=== PATIENT | female | born 1965 | race Hispanic/Latino ===

== ENCOUNTER 2017-11-03 19:11 | Emergency (ER) | payer OTHER ==
--- NOTE | 2017-11-03 20:18 | RAD REPORT ---
EXAM DESCRIPTION: CT - C Spine Wo Con - 11/03/2017 8:00 pm CLINICAL HISTORY: PAIN Radiculopathy COMPARISON: None FINDINGS: The cervical vertebral body heights and disc spaces are maintained. Small endplate osteoph yte is noted at C5-6 and C6-7 compatible with minimal spondylosis. No evidence of acute cervical spine fracture or subluxation. Prevertebral soft tissues are normal in thickness. Soft tissue density is seen left aspect of the vallecula, nonspecific. IMPRESSION: Negative for acute cervical spine abnormality. Minimal lower cervical spondylosis. Soft tissue density is noted in the left aspect of the vallecula, nonspecific. Direct visualization w ould be suggested on non-emergent basis. All CT scans are performed using dose optimization technique as appropriate and may include automated exposure control or mA/KV adjustment according to patient size.
--- NOTE | 2017-11-03 20:22 | RAD REPORT ---
EXAM DESCRIPTION: CT - Thoracic Spine W/o Cont - 11/03/2017 8:05 pm CLINICAL HISTORY: Radiculopathy. PAIN COMPARISON: No comparisons TECHNIQUE: Axial CT imaging through the thoracic spine was performed with coronal and sagittal re-fo rmatted images. All CT scans are performed using dose optimization technique as appropriate and may include automated exposure control or mA/KV adjustment according to patient size. FINDINGS: Vertebral body heights and disc spaces are maintained. A compression fracture is not prese nt. No significant disc space narrowing. Thoracic spine alignment is within normal limits. No paraspinal masses or hematoma. Intervertebral disc detail is inherently limited on CT without gross findings of canal compromise. IMPRESSION: No acute or worrisome abnormality.
--- NOTE | 2017-11-03 20:30 | ER ---
Nurse's Notes [facility] Emergency Department Name: Amada Vazquez Age: 52 yrs Sex: Female : 1965 Arrival Date: 11/03/2017 Time: 19:10 Bed DIS1 Private MD: Diagnosis: Sprain of ligaments of cervical spine;Muscle spasm of back Presentation: 11/03 19:15 Presenting complaint: Patient states: "at first my neck didn't hurt so I refused the dm5 ambulance but now my neck is hurting and my hand is tingling". Transition of care: patient was not received from another setting of care. Onset of symptoms was November 03, 2017. Note pt talking on phone with insurance while trying to get triage information from pt. Care prior to arrival: None. 19:15 Method Of Arrival: Ambulatory dm5 19:15 Acuity: STARR 4 dm5 Triage Assessment: 19:15 General: Appears in no apparent distress. uncomfortable, Behavior is calm, cooperative. dm5 Pain: Complains of pain in neck. Neuro: Level of Consciousness is awake, alert, obeys commands, Oriented to person, place, time, situation. Respiratory: Airway is patent Respiratory effort is even, unlabored, relaxed, Respiratory pattern is regular, symmetrical. Derm: Skin is pink, warm \\T\\ dry. Musculoskeletal: Reports pain in neck, numbness in arms. Historical: - Allergies: 19:22 No Known Allergies; dm5 - Home Meds: 19:22 losartan oral oral [Active]; dm5 - PMHx: 19:22 Hypertension; dm5 - Immunization history:: Adult Immunizations up to date. - Social history:: Smoking status: Patient/guardian denies using tobacco. Screenin:59 Abuse screen: Denies threats or abuse. Denies injuries from another. Nutritional aj screening: No deficits noted. Tuberculosis screening: No symptoms or risk factors identified. Fall Risk None identified. Assessment: 19:59 General: Appears in no apparent distress. comfortable, Behavior is calm, cooperative, aj appropriate for age. Neuro: Level of Consciousness is awake, alert, obeys commands, Oriented to person, place, time, situation, Appropriate for age. Respiratory: Airway is patent Respiratory effort is even, unlabored, Respiratory pattern is regular, symmetrical. Derm: Skin is intact, is healthy with good turgor, Skin is pink, warm \\T\\ dry. normal. Musculoskeletal: Reports numbness in right hand and left hand pain in neck. Vital Signs: 19:15 BP 134 / 83; Pulse 81; Resp 18; Temp 98; Pulse Ox 97% on R/A; dm5 ED Course: 19:10 Patient arrived in ED. aj 19:15 Arm band placed on. C-collar applied. dm5 19:16 Triage completed. dm5 19:17 Norman Downey PA is PHCP. jr8 19:17 Cam Romo MD is Attending Physician. jr8 19:26 Blanca Delgadillo, RN is Primary Nurse. aj 19:[address] via wheelchair. cw1 19:58 CT completed. Patient tolerated procedure well. Patient moved back from CT. cw1 19:59 Patient has correct armband on for positive identification. aj 19:59 No provider procedures requiring assistance completed. Patient did not have IV access aj during this emergency room visit. 20:00 CT C Spine In Process Unspecified. EDMS 20:00 CT Thoracic Spine Wo Cont In Process Unspecified. EDMS 20:28 Ariadna Clements MD is Referral Physician. jr8 Administered Medications: 20:33 CANCELLED (Physician Discretion): Ibuprofen Suspension 10 mg/kg PO once jr8 20:43 Drug: Ibuprofen 800 mg Route: PO; aj 20:43 Follow up: Response: Medication administered at discharge. aj Outcome: 20:29 Discharge ordered by . jr8 20:44 Discharged to home ambulatory. aj 20:44 Condition: good 20:44 Discharge instructions given to patient, Instructed on discharge instructions, follow up and referral plans. Demonstrated understanding of instructions, follow-up care. 20:45 Patient left the ED. aj Signatures: Dispatcher [employer] [facility] Daphne Garcia RN RN dm5 Myers, Amanda, RN RN aj Woodley, Crystal cw1 Norman Downey PA PA jr8
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
[2017-11-03] MEDS ORDERED: IBUPROFEN 400 MG TAB ONE (20:44)
== END 2017-11-03 20:45 | disposition home or self-care (01) ==
LOC: ER 19:11
DX: S13.4XXA Sprain of ligaments of cervical spine, initial encounter (principal); M62.830 Muscle spasm of back; V49.40XA Driver injured in collision with unspecified motor vehicles in traffic accident, initial encounter; I10 Essential (primary) hypertension
CPT/HCPCS: 72125; 72128; 99284